=== PATIENT | male | born 1955 | race Caucasian/White ===

== ENCOUNTER → 2017-12-21 | Outpatient (CLI) | payer BC ==
[~2017-12-21] VITALS: Ht 180.3 cm; Wt 109.7 kg
[~2017-12-21] MED LIST: ADVIL200 MG PO; CENTRUM MEN'S1 EACH PO; GLUCOSAMINE CH1 EAC2 PO; PRAVACHOL20 MG PO; XALATAN2.5 ML BOTH EYES
== END | disposition home or self-care (01) ==
LOC: AMB 08:14
PROC: 0DBP8ZX Excision of Rectum, Via Natural or Artificial Opening Endoscopic, Diagnostic (ICD-10-PCS; principal; 2017-12-21)
DX: Z86.010 Personal history of colon polyps (principal); Z80.0 Family history of malignant neoplasm of digestive organs; K62.1 Rectal polyp
CPT/HCPCS: 88305; J2250